=== PATIENT | male | born 1990 | race African-American/Black ===

== ENCOUNTER 2020-08-13 16:03 | Emergency (ER) | payer SELFPAY ==
[2020-08-13 16:11] VITALS: BP 156/101; PULSE 83; TEMP 98.2; BMI 31.1
[2020-08-13] MEDS ORDERED: IBUPROFEN 400 MG TABLET (FP) PO ONE ×2 (16:31→16:52)
== END 2020-08-13 17:14 | disposition home or self-care (01) ==
LOC: FER 16:03
DX: R21 Rash and other nonspecific skin eruption (principal)
CPT/HCPCS: 99284-25